=== PATIENT | male | born 1980 | race Caucasian/White ===

== ENCOUNTER 2017-03-03 15:07 | Emergency (ER) | payer OTHER ==
[~2017-03-03] VITALS: Ht 172.7 cm; Wt 83.9 kg
--- NOTE | 2017-03-03 16:05 | ED GI/GU/ABDOMINAL COMPLAINT ---
History of Present Illness General Chief Complaint: General Adult Stated Complaint: PT HAS ABDOMINAL PAIN LAST 4 HOURS Source: patient Exam Limitations: no limitations Vital Signs & Intake/Output Vital Signs & Intake/Output Vital Signs Date Time Temp Pulse Resp B/P B/P Pulse O2 O2 Flow FiO2 Mean Ox Delivery Rate 03/03 1708 99 Room Air 03/03 1513 97.9 88 20 151/112 97 Room Air Allergies Coded Allergies: No Known Allergies (03/03/17) Reconcile Medications Ketorolac Tromethamine 10 MG TABLET 1 TAB PO TID PRN PAIN RECEIVED IM IN ER Levothyroxine Sodium 75 MCG TABLET 1 TAB PO DAILY THYROID (Reported) Multivitamin (Multi-Day Vitamins) 1 EACH TABLET 1 TAB PO DAILY SUPPLEMENT ( Reported) Ondansetron HCl (Zofran) 4 MG TABLET 1 TAB PO Q6-8P NAUSEA Oxycodone HCl/Acetaminophen (Percocet 5-325 MG Tablet) 5 MG-325 MG TABLET 1 TAB PO BID PRN PAIN Tamsulosin HCl (Flomax) 0.4 MG CAP.ER.24H 1 CAP PO DAILY KIDNEY STONE Triage Note: LEFT LOWER ABDOMINAL PAIN SINCE AFTER BREAKFAST THIS MORNING. STATES AROUND 1100 THE PAIN BECAME NAUSEOUS WITH CHILLS. STATES PAIN IS CONSTANT AND DENIES ANY URINARY S&S Triage Nurses Notes Reviewed? yes Onset: Abrupt Duration: constant Timing: single episode today Quality/Severity: sharpness, severe Severity Numbers: 10 Location: left flank Radiation: groin Activities at Onset: eating HPI: Patient is a 36-year-old male with a recent diagnosis of hypothyroidism who began Synthroid yesterday who presents emergency that today he was in his normal state of health and by mid morning he began complaining of generalized abdominal discomfort and after eating an egg sandwich immediately patient had acute onset of sharp stabbing left flank pain with radiation to groin. Patient self-induced vomit and has been nauseous since. Patient has been unable to tolerate anything by mouth. Denies any testicular pain or swelling. Denies any back pain dysuria hematuria chest pain shortness of breath. (ANNIE HAHN,CEDRIC) Past History Travel History Traveled to [place] past 21 day No Medical History Any Pertinent Medical History? see below for history Endocrine: hypothyroidism Tetanus Vaccine: Surgical History Surgical History: non-contributory Psychosocial History What is your primary language Italian Tobacco Use: Quit >30 days ago ETOH Use: occasional use Illicit Drug Use: denies illicit drug use Family History Hx Contributory? No (CEDRIC HERRING) Review of Systems Review of Systems Constitutional: Reports: no symptoms. EENTM: Reports: no symptoms. Respiratory: Reports: no symptoms. Cardiovascular: Reports: no symptoms. GI: Reports: see HPI, abdominal pain. Genitourinary: Reports: no symptoms. Musculoskeletal: Reports: no symptoms. Skin: Reports: no symptoms. Neurological/Psychological: Reports: no symptoms. Hematologic/Endocrine: Reports: no symptoms. Immunologic/Allergic: Reports: no symptoms. All Other Systems: Reviewed and Negative (CEDRIC HERRING) Physical Exam Physical Exam General Appearance: mild distress Gastrointestinal: normal bowel sounds, soft, Left flank point tenderness no right lower quadrant pain no CVA tenderness Comments: HEENT: Normal EENT exam. Neck: Supple, no lymphadenopathy, normal range of motion without pain or tenderness Back: Nontender, no CVA tenderness. Cardiovascular: Regular rate and rhythms no murmurs rubs or gallops, normal JVP Respiratory: Chest nontender. No respiratory distress.breath sounds clear to auscultation bilaterally Extremity: No edema, no calf tenderness to palpation, normal and equal pulses. Neuro: Alert oriented x3, motor sensory normal, Skin: No appreciable rash on exposed skin, skin is warm and dry. Psych: Mood and affect is normal, memory and judgment is normal. Core Measures ACS in differential dx? No Severe Sepsis Present: No Septic Shock Present: No (CEDRIC HERRING) Progress Differential Diagnosis: AAA, AMI, appendicitis, biliary colic, colon cancer, cholecystitis, diverticulitis, epididymitis, esophageal varices, gastritis, hepatitis, hernia, hemorrhoids, ischemic bowel, inflamm bowel dis, orchitis, pancreatitis, prostatitis, peptic ulcer, perforated viscous, pyelonephritis, SBO , testicular torsion, ureterolithiasis, urinary retention, urethritis, UTI/pyelo Plan of Care: Orders Procedure Date/time Status URINALYSIS 03/03 1621 Complete LIPASE 03/03 1615 Active COMPREHENSIVE METABOLIC PANEL 03/03 1615 Active CBC WITHOUT DIFFERENTIAL 03/03 1615 Complete AMYLASE 03/03 1615 Active Laboratory Tests 03/03/17 1700: Sodium Pending, Potassium Pending, Chloride Pending, Carbon Dioxide Pending, Anion Gap Pending, BUN Pending, Creatinine Pending, BUN/Creatinine Ratio Pending , Glucose Pending, Calcium Pending, Total Bilirubin Pending, AST Pending, ALT Pending, Alkaline Phosphatase Pending, Total Protein Pending, Albumin Pending, Globulin Pending, Albumin/Globulin Ratio Pending, Amylase Pending, Lipase Pending, CBC w Diff NO MAN DIFF REQ, RBC 5.07, MCV 86.9, MCH 30.0, RDW 12.7, MPV 8.0, Gran % 86.5 H, Lymphocytes % 5.8 L, Monocytes % 7.2, Eosinophils % 0.5, Basophils % 0 L, Absolute Granulocytes 7.5 H, Absolute Lymphocytes 0.5 L, Absolute Monocytes 0.6, Absolute Eosinophils 0, Absolute Basophils 0, PUBS MCHC 34.5 03/03/17 1651: Urine Color YEL, Urine Clarity CLEAR, Urine pH 6.0, Ur Specific [place] 1.025, Urine Protein TRACE H, Urine Ketones NEG, Urine Nitrite NEG, Urine Bilirubin NEG, Urine Urobilinogen 0.2, Ur Leukocyte Esterase NEG, Ur Microscopic SEDIMENT EXAMINED, Urine RBC 15-25 H, Urine WBC 1-3 H, Ur Epithelial Cells RARE, Urine Hemoglobin LARGE H, Urine Glucose NEG Patient has a 2 mm stone to the left ureter. After medications were administered patient had complete resolution of pain. Patient was able tolerate by mouth upon discharge. I discussed CT scan results with patient strongly advised patient to follow up with urology. Upon discharge patient looks well no apparent distress and will comply with discharge instructions and had no questions (ANNIE HAHN,CEDRIC) Diagnostic Imaging: Viewed by Me: CT Scan. Radiology Impression: acute abnormality Initial ED EKG: none Comments: PATIENT: JAVIER WHEAT PRESENT AGE: 36 PATIENT ACCOUNT NO: [id number] : 82 LOCATION: [facility] ORDERING PHYSICIAN: CEDRIC HAHN SERVICE DATE: 03/03/17 EXAM TYPE: CAT - CT ABD & PELVIS W/O IV CONTRAS EXAMINATION: CT ABDOMEN AND PELVIS WITHOUT CONTRAST CLINICAL INFORMATION: Left flank pain COMPARISON: None TECHNIQUE: Multidetector volumetric imaging was performed from the superior aspect of the liver through the pubic symphysis. Sagittal and coronal reformatted images were obtained on the technologist's workstation. DLP: 329.84 mGy-cm FINDINGS: LUNG BASES: The visualized lung bases are unremarkable. LIVER, GALLBLADDER, AND BILIARY TREE: The liver is normal in size, shape, and attenuation. No focal hepatic lesion or biliary ductal dilatation is present. The gallbladder is unremarkable with no evidence of radiopaque gallstones, gallbladder wall thickening, or obvious pericholecystic inflammatory changes. PANCREAS: Unremarkable. SPLEEN: Unremarkable. ADRENAL GLANDS: Unremarkable. KIDNEYS AND URETERS: There is hydronephrosis of left kidney. Significant distention of the renal pelvis calyces and proximal left ureter with edema in the perinephric fat around the left kidney. There is an obstructing stone in the proximal left ureter at about the level of L4. There is a 6 mm stone and just proximal to this obstructing stone is a 3 x 4 mm stone. No additional stone in left kidney. The right kidney and ureter are normal with no calculus or hydronephrosis. BLADDER: Unremarkable. GASTROINTESTINAL TRACT: The small and large bowel are unremarkable. The appendix is unremarkable. ABDOMINAL WALL: No significant hernia is appreciated. LYMPH NODES: Normal. VASCULAR: Unremarkable. PELVIC VISCERA: Unremarkable. OSSEOUS STRUCTURES: Vacuum disc phenomenon L5-S1. IMPRESSION: Marked hydronephrosis of left kidney due to 2 obstructing stones in the proximal left ureter. (CEDRIC HERRING) Departure Departure Disposition: HOME OR SELF CARE Condition: Stable Clinical Impression Primary Impression: Calculus of left kidney Referrals: MAGUI PALMA DO (PCP/Family) FELICITAS COLES MD Additional Instructions: As discussed begin the prescriptions of ketorolac and Percocet for pain. Begin the prescription of Flomax for your symptoms and begin the prescription of Zofran if needed for nausea. On Monday follow-up and establish urologist Dr. Coles. If symptoms worsen return to emergency room. Pressures is waiting at [facility] Departure Forms: Customer Survey General Discharge Information Prescriptions: Current Visit Scripts Ketorolac Tromethamine 1 TAB PO TID PRN PAIN #15 TAB RECEIVED IM IN ER Oxycodone HCl/Acetaminophen (Percocet 5-325 MG Tablet) 1 TAB PO BID PRN PAIN #8 TAB Tamsulosin HCl (Flomax) 1 CAP PO DAILY #20 CAP Ondansetron HCl (Zofran) 1 TAB PO Q6-8P #15 TAB (CEDRIC HERRING) PA/[employer] Co-Sign Statement Statement: ED Attending supervision documentation- [] I saw and evaluated the patient. I have also reviewed all the pertinent lab results and diagnostic results. I agree with the findings and the plan of care as documented in the PA's/[employer]'s documentation. [X] I have reviewed the ED Record and agree with the PA's/[employer]'s documentation. [] Additions or exceptions (if any) to the PAs/[employer]'s note and plan are summarized below: [] (KERRI ODEN,AASHISH)
[2017-03-03] MEDS ORDERED: LEVOTHYROXINE75 MCG PO (16:20)
[2017-03-03] MEDS ORDERED: MULTI-DAY VITA1 EACH PO (16:20)
--- NOTE | 2017-03-03 16:55 | CT SCAN REPORT ---
EXAMINATION: CT ABDOMEN AND PELVIS WITHOUT CONTRAST CLINICAL INFORMATION: Left flank pain COMPARISON: None TECHNIQUE: Multidetector volumetric imaging was performed from the superior aspect of the liver through the pubic symphysis. Sagittal and coronal reformatted images were obtained on the technologist's workstation. DLP: 329.84 mGy-cm FINDINGS: LUNG BASES: The visualized lung bases are unremarkable. LIVER, GALLBLADDER, AND BILIARY TREE: The liver is normal in size, shape, and attenuation. No focal hepatic lesion or biliary ductal dilatation is present. The gallbladder is unremarkable with no evidence of radiopaque gallstones, gallbladder wall thickening, or obvious pericholecystic inflammatory changes. PANCREAS: Unremarkable. SPLEEN: Unremarkable. ADRENAL GLANDS: Unremarkable. KIDNEYS AND URETERS: There is hydronephrosis of left kidney. Significant distention of the renal pelvis calyces and proximal left ureter with edema in the perinephric fat around the left kidney. There is an obstructing stone in the proximal left ureter at about the level of L4. There is a 6 mm stone and just proximal to this obstructing stone is a 3 x 4 mm stone. No additional stone in left kidney. The right kidney and ureter are normal with no calculus or hydronephrosis. BLADDER: Unremarkable. GASTROINTESTINAL TRACT: The small and large bowel are unremarkable. The appendix is unremarkable. ABDOMINAL WALL: No significant hernia is appreciated. LYMPH NODES: Normal. VASCULAR: Unremarkable. PELVIC VISCERA: Unremarkable. OSSEOUS STRUCTURES: Vacuum disc phenomenon L5-S1. IMPRESSION: Marked hydronephrosis of left kidney due to 2 obstructing stones in the proximal left ureter.
[2017-03-03 17:13] LABS: ABSOLUTE BASOPHIL COUNT 0 /CUMM (0.0-0.2); ABSOLUTE EOSINOPHIL COUNT 0 /CUMM (0.0-0.7); ABSOLUTE GRANULOCYTE CT 7.5 /CUMM (1.4-6.5); ABSOLUTE LYMPH COUNT 0.5 /CUMM (1.2-3.4); ABSOLUTE MONOCYTE COUNT 0.6 /CUMM (0.10-0.60); BASOPHIL % 0 % (0.0-2.0); EOSINOPHIL % 0.5 % (0-5); HEMATOCRIT 44.1 % (42-52); MEAN CORPUSCULAR HGB CONC 34.5 G/DL (33.0-37.0); MEAN CORPUSCULAR VOLUME 86.9 FL (80.0-94.0); PLATELET COUNT 183 /CUMM (130-400); RBC DISTRIBUTION WIDTH 12.7 % (11.5-14.5); RED BLOOD CELL CT 5.07 /CUMM (4.70-6.10); WHITE BLOOD CELL COUNT 8.6 /CUMM (4.8-10.8)
[2017-03-03 17:15] LABS: GRANULOCYTE % 86.5 % (42.2-75.2)
[2017-03-03] MEDS ORDERED: FLOMAX0.4 M1 PO (17:30)
[2017-03-03] MEDS ORDERED: ZOFRAN4 M2 PO (17:30)
[2017-03-03] MEDS ORDERED: KETOROLAC TROME10 M1 PO (17:30)
[2017-03-03] MEDS ORDERED: PERCOCET 5-3251 EACH PO (17:30)
[2017-03-03 17:50] VITALS: BP 142/70
== END 2017-03-03 17:51 ==
LOC: ERH 15:07
PROVIDERS: Physician Assistant
DX: N20.0 Calculus of kidney (principal)
CPT/HCPCS: 74176; 81001; 96374; 96375; J1885; J2405

== ENCOUNTER → 2017-04-03 | Day surgery (SDC) | payer OTHER ==
[~2017-04-03] VITALS: Ht 172.7 cm; Wt 83.9 kg
[~2017-04-03] MED LIST: FLOMAX0.4 M1 PO; KETOROLAC TROME10 M1 PO; LEVOTHYROXINE75 MCG PO; MULTI-DAY VITA1 EACH PO; PERCOCET 5-3251 EACH PO; ZOFRAN4 M2 PO
--- NOTE | 2017-04-03 12:07 | Operative Report ---
Operative/Inv Procedure Report Surgery Date: 04/03/17 Name of Procedure: left ESWL Pre-Operative Diagnosis: left renal stones, 7mm and 2mm Post-Operative Diagnosis: same Estimated Blood Loss: scant Surgeon/Short Story Writer: DELORES GOMEZ MD Anesthesia: local monitored anesthesi Complications: none Condition: stable Operative Indication: left renal colic Operative/Procedure Note Note: Jarrett Arndt identified in the holding area. He has a hx of left renal stones. He has had renal colic. He was consented for a left ESWL and the risks, benefits and alternatives were given. All questions were answered. Patient was taken to the operating room and placed in a supine position. Time out was performed. No IV antibiotics were given. He was optimally placed for ESWL on the left side. Shocks were started at power of 1 and quickly increased to a power of 20 at a total of 2500 shocks. Patient tolerated the procedure well. The stones looked visibly different at the end of the case. Findings: left proximal stone(s) identified on flouroscopy Discharge Disposition: Same Day Admissions
== END ==
LOC: STS 02:29
DX: N20.0 Calculus of kidney (principal); Z87.442 Personal history of urinary calculi; E03.9 Hypothyroidism, unspecified; K21.9 Gastro-esophageal reflux disease without esophagitis; Z87.891 Personal history of nicotine dependence
CPT/HCPCS: J1885; J2250